=== PATIENT | female | born 1955 | race Caucasian/White ===

== ENCOUNTER 2017-10-15 14:04 | Observation (INO) | payer MEDICARE, MEDICAID ==
[~2017-10-15] VITALS: Ht 162.6 cm; Wt 90.0 kg
[2017-10-15] MEDS ORDERED: LORazepam 1MG TABLET PO ONE ×3 (14:30→17:30)
[2017-10-15] MEDS ORDERED: PLEASE ENTER ALLERGIES MC SCH ×2 (14:36)
[2017-10-15] MEDS ORDERED: LORazepam 1MG TABLET ONE (14:40)
[2017-10-15] MEDS ORDERED: ZIPRASIDONE 20 MG INJ IM ONE (16:30)
[2017-10-15] MEDS ORDERED: LABETALOL 5MG/ML, 20ML IVPush PRN (17:00)
[2017-10-15] MEDS ORDERED: ONDANSETRON 2MG/ML, 2ML IVPush PRN (17:00)
[2017-10-15] MEDS ORDERED: ONDANSETRON ODT 4 MG PO PRN (17:00)
[2017-10-15 18:26] LABS: HEMATOCRIT 44.3 % (34.6-47.8); HEMOGLOBIN 14.6 g/dL (11.7-16.4); WHITE BLOOD COUNT 8.4 x10^3/uL (3.4-10)
[2017-10-15 18:33] LABS: BLOOD UREA NITROGEN 29 mg/dL (7-18)
[2017-10-15 18:34] LABS: ACETAMINOPHEN < 2 mcg/mL (10-30)
[2017-10-15 19:48] LABS: DAU SCREEN DISCLAIMER
[2017-10-15 20:49] VITALS: BP 143/81
[2017-10-16] MEDS: ENOXAPARIN 40 MG/0.4 ML SQ SCH ×2 (01:20→16:34)
[2017-10-16 07:10] VITALS: BP 128/84
[2017-10-16] MEDS: SENNA/DOCUSATE TABLET PO SCH (08:02)
[2017-10-16] MEDS: OLANZAPINE 5 MG TABLET PO SCH (08:03)
[2017-10-17 08:00] VITALS: BP 148/93
[2017-10-17] MEDS: SENNA/DOCUSATE TABLET PO SCH (09:08)
[2017-10-17] MEDS: OLANZAPINE 5 MG TABLET PO SCH (09:08)
[2017-10-17 19:15] VITALS: BP 124/79
[2017-10-18 08:37] VITALS: BP 125/76
[2017-10-18] MEDS: OLANZAPINE 5 MG TABLET PO SCH (08:49)
[2017-10-18] MEDS: SENNA/DOCUSATE TABLET PO SCH (08:50)
[2017-10-18] MEDS ORDERED: RISPERIDONE 2 MG TABLET ONE (19:34)
[2017-10-18] MEDS: RISPERIDONE 2 MG TABLET PO SCH (19:42)
[2017-10-19 08:00] VITALS: BP 128/78
[2017-10-19] MEDS: SENNA/DOCUSATE TABLET PO SCH (08:41)
[2017-10-19] MEDS: RISPERIDONE 2 MG TABLET PO SCH ×2 (08:41→20:15)
[2017-10-19 19:43] VITALS: BP 174/89
[2017-10-19 23:37] VITALS: BP 151/78
[2017-10-20 07:00] VITALS: BP 130/86
[2017-10-20] MEDS: SENNA/DOCUSATE TABLET PO SCH (09:00)
[2017-10-20] MEDS: RISPERIDONE 2 MG TABLET PO SCH (09:37)
== END 2017-10-20 17:39 ==
LOC: ED 15:10 → EDIP 16:46 → INTOOBSV 16:59 → OBSVTOIN 16:59 → 3E 20:43
PROVIDERS: ADMIT Internal Medicine; ATTEND Internal Medicine
DX: F23 Brief psychotic disorder (principal); F20.9 Schizophrenia, unspecified; E66.9 Obesity, unspecified; F31.9 Bipolar disorder, unspecified; H11.30 Conjunctival hemorrhage, unspecified eye; R44.0 Auditory hallucinations; R44.1 Visual hallucinations
CPT/HCPCS: 36415; 70450; 80048; 80307; 80329; 82040; 85025; 99285; G0378; G0479; G0480